=== PATIENT | female | born 1980 | race Caucasian/White ===

== ENCOUNTER 2021-10-20 18:31 | Emergency (ER) | payer OTHER ==
[~2021-10-20] VITALS: Ht 170.2 cm; Wt 125.3 kg
--- NOTE | 2021-10-20 18:38 | PHYS DOC ---
General Adult HPI: HPI: ".. I had a UTI ..at the urgent care on Monday ... They put me on Bactrim and then told me today to go to Macrobid but it was resistant to Bactrim... Still feeling like I have fevers chills general not feeling well...." " I have not started the Macrobid yet.." Patient is a 40 year old female who presents with above hx and complaints of headache, fever, myalgia, malaise, nausea, chills, and UTI. Patient has been on Bactrim and was told to change to Macrobid for UTI. Patient has had COVID vaccination x2 Moderna. Has not completed flu vaccination for this fall yet. The patient normally follows with Dr. Huang. No history immunosuppression. No history of recent travel. No specific ill contacts. Has had urinary tract infections in the past. Review of Systems: Review of Systems: Constitutional: Complains of fever and chills Eyes: Denies change in visual acuity HENT: Complains of nasal congestion and postnasal drainage with sore throat Respiratory: Complains of cough that is nonproductive Cardiovascular: Denies chest pain or edema GI: Denies abdominal pain, nausea, vomiting, bloody stools or diarrhea : Complains of urinary tract infection Musculoskeletal: Denies back pain or joint pain Integument: Denies rash Neurologic: Denies headache, focal weakness or sensory changes Endocrine: Denies polyuria or polydipsia Lymphatic: Denies swollen glands Psychiatric: Denies depression or anxiety Family History: Family History: Noncontributory to presentation. Current Medications: Current Meds: See nursing for home meds Allergies: Allergies: Allergic to penicillin equals rash Physical Exam: PE: Constitutional: Moderate acute distress, non-toxic appearance. [] HENT: Normocephalic, atraumatic, bilateral external ears normal, oropharynx moist, no oral exudates, nose swollen turbinates and clear rhinorrhea with postnasal drainage. Eyes: PERRLA, EOMI, conjunctiva normal, no discharge. [] Neck: Normal range of motion, no tenderness, supple, no stridor. [] Cardiovascular: Tachycardia heart rate regular rhythm, no murmur [] Lungs & Thorax: Bilateral breath sounds to apex with few basilar wheezes auscultation [] Abdomen: Bowel sounds normal, soft, no tenderness, no masses, no pulsatile masses. [] Skin: Warm, dry, no erythema, no rash. [] Back: No tenderness, no CVA tenderness. [] Extremities: No tenderness, no cyanosis, no clubbing, ROM intact, no edema. [] Neurologic: Alert and oriented X 3, normal motor function, normal sensory function, no focal deficits noted. [] No cording appreciated Psychologic: Affect normal, judgement normal, mood normal. [] EKG: EKG: My interpretation of EKG shows a sinus rhythm at 99 bpm. Left atrial bimodal P waves and the limb leads. But no findings of acute STEMI with contralateral changes. Time of this EKG is 1917 hrs. [] Radiology/Procedures: Radiology/Procedures: [][address] [address] IMAGING REPORT Signed PATIENT: LILIBETH KARIMI ACCOUNT: [id number] : 1980 LOCATION: ER AGE: 40 SEX: F EXAM STATUS: DEP ER ORD. PHYSICIAN: JUAN J LIND MD REASON: Short of air, COVID PROCEDURE: CHEST AP ONLY Exam: Chest one view INDICATION: Short of air, Covid TECHNIQUE: Frontal view of the chest Comparisons: None FINDINGS: The cardiomediastinal silhouette and pulmonary vessels are within normal limits. The lung and pleural spaces are clear. IMPRESSION: No acute cardiopulmonary process. Electronically signed by: Cedric Iglesias MD (10/20/2021 9:09 PM) [facility] DICTATED AND SIGNED BY: CEDRIC IGLESIAS MD DATE: 10/20/212108 CC: JUAN J LIND MD; MAURICE HUANG MD ~MTH0 0 Heart Score: C/O Chest Pain: N/A Risk Factors: Risk Factors: DM, Current or recent (<one month) smoker, HTN, HLP, family history of CAD, obesity. Risk Scores: Score 0 - 3: 2.5% MACE over next 6 weeks - Discharge Home Score 4 - 6: 20.3% MACE over next 6 weeks - Admit for Clinical Observation Score 7 - 10: 72.7% MACE over next 6 weeks - Early Invasive Strategies Course & Med Decision Making: Course & Med Decision Making Pertinent Labs and Imaging studies reviewed. (See chart for details) Pt. to self isolate. Wear mask. Repeat COVID testing oin 10 days to make sure infection has cleared. Use MDI two puffs four times a day. Follow up with primary. Finish antibiotics for UTI- here the urine was clear. Push fluids. Return if any concerns. Get a home sat. monitor. Impression: 1. Fever 2. Covid infection- Viral Syndrome 3. Hx. of UTI- on Bactrim [] Dragon Disclaimer: Dragon Disclaimer: This electronic medical record was generated, in whole or in part, using a voice recognition dictation system. Departure Departure: Referrals: MAURICE HUANG MD (PCP) Dragon Disclaimer This chart was dictated in whole or in part using Voice Recognition software in a busy, high-work load, and often noisy Emergency Department environment. It may contain unintended and wholly unrecognized errors or omissions. Dragon Disclaimer This chart was dictated in whole or in part using Voice Recognition software in a busy, high-work load, and often noisy Emergency Department environment. It may contain unintended and wholly unrecognized errors or omissions. Dragon Disclaimer This chart was dictated in whole or in part using Voice Recognition software in a busy, high-work load, and often noisy Emergency Department environment. It may contain unintended and wholly unrecognized errors or omissions. JUAN J LIND MD Oct 20, 2021 18:37
[2021-10-20] MEDS ORDERED: IV RINGERS SOLUTION,LACTATED 1,000 ML IV SCH (18:45)
[2021-10-20 19:18] LABS: CLARITY,URINE HAZY; COLOR,URINE YELLOW
[2021-10-20 19:19] LABS: BACTERIA,URINE 0 /HPF (0-FEW); BILIRUBIN,URINE NEG (NEG); GLUCOSE,URINE NEG (NEG); NITRITE,URINE NEG (NEG); RBC,URINE 0 /HPF (0-2); SQUAMOUS EPITHELIAL CELL,UR MANY /LPF; WBC,URINE OCC /HPF (0-4)
[2021-10-20 19:29] LABS: BASO # 0.1 x10^3/uL (0.0-0.2); BASO % 1 % (0-3); EOS % 0 % (0-3); HEMATOCRIT 42.4 % (36.0-47.0); HEMOGLOBIN 14.1 g/dL (12.0-15.5); LYMPH # 0.7 x10^3/uL (1.0-4.8); LYMPH % 9 % (24-48); MEAN CORPUSCULAR HEMOGLOBIN 29 pg (25-35); MEAN CORPUSCULAR HGB CONC 33 g/dL (31-37); MEAN CORPUSCULAR VOLUME 88 fL (79-100); MONO % 14 % (0-9); NEUT # 5.5 x10^3uL (1.8-7.7); NEUT % 75 % (31-73); PLATELET COUNT 249 x10^3/uL (140-400); RED BLOOD COUNT 4.84 x10^6/uL (3.50-5.40); RED CELL DISTRIBUTION WIDTH 14.4 % (11.5-14.5); WHITE BLOOD COUNT 7.3 x10^3/uL (4.0-11.0)
[2021-10-20 19:37] LABS: CALCIUM 8.3 mg/dL (8.5-10.1); GFR 61.1; POTASSIUM 4.1 mmol/L (3.5-5.1)
[2021-10-20 19:44] LABS: INFLUENZA A PATIENT NEGATIVE (NEGATIVE); INFLUENZA B PATIENT NEGATIVE (NEGATIVE)
[2021-10-20] MEDS ORDERED: ACETAMINOPHEN 500 MG TABLET PO ONE (20:00)
[2021-10-20] MEDS ORDERED: ALBUTEROL SULFATE 8GM INHALER. INH ONE (20:00)
[2021-10-20] MEDS ORDERED: IBUPROFEN 600 MG TABLET. PO ONE (20:00)
[2021-10-20 20:17] VITALS: BP 161/82
--- NOTE | 2021-10-20 21:11 | RAD ---
Exam: Chest one view INDICATION: Short of air, Covid TECHNIQUE: Frontal view of the chest Comparisons: None FINDINGS: The cardiomediastinal silhouette and pulmonary vessels are within normal limits. The lung and pleural spaces are clear. IMPRESSION: No acute cardiopulmonary process. Electronically signed by: Cedric Gutierrez MD (10/20/2021 9:09 PM) KATE
--- NOTE | 2021-10-20 22:14 | EKG ---
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
== END 2021-10-20 20:45 | disposition home or self-care (01) ==
LOC: ER 18:31
DX: U07.1 COVID-19 (principal); B34.9 Viral infection, unspecified; Z87.440 Personal history of urinary (tract) infections; Z88.0 Allergy status to penicillin
CPT/HCPCS: 71045; 80048; 81001; 85025; 87040; 87070; 87426; 87804; 87880; 93005; 96360; 99285; J7120